=== PATIENT | female | born 1980 | race Caucasian/White ===

== ENCOUNTER → 2020-05-21 16:32 | Outpatient (CLI) | payer SELFPAY ==
--- NOTE | 2020-05-21 16:36 | CT_ITS ---
STUDY: CT MAXILLOFACIAL SINUSES REASON FOR EXAM: Female, 40 years old. Sinusitis. RADIATION DOSAGE (If Supplied By Facility): CTDIvol = ( 33.06 ) mGy, DLP = ( 850.38 ) mGycm TECHNIQUE: The patient was scanned in a multi detector CT scanner. High resolution axial imaging was performed without the administration of intravenous contrast material. Sagittal and coronal images were reconstructed. Individualized dose optimization techniques were used for this CT. COMPARISON: None. FINDINGS: FRONTAL SINUSES: There is mucoperiosteal reaction in both frontal sinuses with near occlusion on the right. ETHMOIDAL SINUSES: Marked mucoperiosteal reaction in the ethmoid air cells. MAXILLARY SINUSES: Bilateral mucoperiosteal reaction with questionable retention cyst on the right. SPHENOIDAL SINUSES: Minimal mucoperiosteal reaction anteriorly in the right sphenoid sinus. There is occlusion of the bilateral maxillary infundibuli with normal uncinate processes, ethmoid bullae, and hiatus semilunaris. Normal bilateral middle turbinates. Normal bilateral inferior turbinates. Normal midline nasal septum. There is patency of the bilateral nasal airways. The visualized osseous structures are normal. The visualized bilateral orbital contents are normal. CT/Sinus/Facial Bone IMPRESSION: Pansinusitis. Electronically Signed: Moises Shelton DO at 22:17 EDT Tel [phone], Service support ,
== END ==
PROVIDERS: PCP Family Medicine; Referring Provider Otolaryngology; Visit Provider Otolaryngology
DX: J32.9 Chronic sinusitis, unspecified (principal); H05.221 Edema of right orbit
CPT/HCPCS: 70486

== ENCOUNTER → 2020-08-11 15:20 | Outpatient (CLI) | payer SELFPAY ==
--- NOTE | 2020-08-11 15:27 | CT_ITS ---
STUDY: CT ORBITS WITH CONTRAST REASON FOR EXAM: Female, 40 years old. Right orbital granuloma x 3 months, improved with steroids, returned 3 weeks ago, redness and swelling, sticky residue in the morning. Hx sinusitis. RADIATION DOSAGE (If Supplied By Facility): CTDIvol = ( 29.38 ) mGy, DLP = ( 297.69 ) mGycm TECHNIQUE: The patient was scanned in a multi detector CT scanner. Transaxial imaging was performed following the intravenous administration of ml of 50mL Isovue-370 contrast material. Sagittal and coronal images were reconstructed. Individualized dose optimization techniques were used for this CT. COMPARISON: Facial bone CT dated May 21, 2020 FINDINGS: Mild right periorbital soft tissue swelling is present. There is also mild enlargement of the right lateral rectus muscle is subtle edema at the periphery of the muscle. Normal globes. Normal intraconal spaces. Normal optic nerve sheath complex. Normal remaining bilateral extraocular muscles. Normal lacrimal glands. Normal bilateral medial and inferior orbital mina. Normal bilateral maxillary bones. Normal bilateral frontozygomatic arches. Normal bilateral zygomatic temporal arches. Normal frontal sinus. There is moderate mucus opacification of the bilateral ethmoid sinuses. Mild to moderate mucosal thickening is present in the bilateral maxillary sinuses.. There is mild mucus opacification in the sphenoid sinuses. Normal visualized mastoid air cells and inner ear structures. There is no demonstrated abnormal enhancement. CT/Orb Sella Post Fossa Ear W/CON IMPRESSION: 1. Mild right periorbital soft tissue swelling is present. There is also mild enlargement of the right lateral rectus muscle is subtle edema at the periphery of the muscle. 2. Paranasal sinusitis Electronically Signed: Eduardo So MD at 16:55 EST , Service support ,
[2020-08-11 16:58] LABS: Erythrocyte Sedimentation Rate 6 mm/hr (0-20)
[2020-08-11 17:52] LABS: Rheumatoid Factor < 10.0 IU/mL (<15)
[2020-08-13 16:09] LABS: Cytoplasmic Ab (C-ANCA) <1:20 titer (Neg:<1:20)
[2020-08-13 16:12] LABS: ANTINUCLEAR ANTIBODIES DIRECT Negative (Negative)
[2020-08-13 16:16] LABS: Angiotensin Convert Enzyme 24 U/L (14-82); Perinuclear Ab (P-ANCA) <1:20 titer (Neg:<1:20)
== END ==
PROVIDERS: PCP Family Medicine; Referring Provider Ophthalmology; Visit Provider Ophthalmology
DX: H05.111 Granuloma of right orbit (principal)
CPT/HCPCS: 36415; 70481; 82164; 85652; 86038; 86256; 86431; Q9967

== ENCOUNTER → 2021-05-26 06:28 | Outpatient (CLI) | payer SELFPAY ==
--- NOTE | 2021-05-26 06:45 | MRI_ITS ---
STUDY: MRI ORBITS WITH AND WITHOUT CONTRAST REASON FOR EXAM: Female, 41 years old. IDIOPATHIC ORBITAL INFLAMMATORY SYNDROME, RIGHT; NKI , SWELLING RT EYE X 1 YEAR TECHNIQUE: Standardized fat and water weighted pulse sequences were obtained in all 3 orthogonal planes, pre-and post contrast administration. IV 16 mL Dotarem was administered for the contrast portion of the examination. COMPARISON: CT of the orbits 08/11/2020 FINDINGS: Normal bilateral globes. Normal bilateral optic nerve sheath complexes and optic nerves. Normal bilateral intraconal and extraconal spaces. There is thickening of the lateral rectus muscle of the right orbit extending to the tendinous junction. There is also asymmetric thickening of the right medial rectus muscle when compared with the left. There is no discrete mass or abnormal enhancement. Normal optic chiasm and post-chiasmatic tracts. Normal sella turcica, pituitary gland, infundibular stalk, and hypothalamus. Normal bilateral cavernous sinuses. Normal tectal plate and pineal gland. Normal flow voids within the major intracranial circulation suggesting patency by spin echo criteria. Moderate mucosal thickening of the maxillary sinuses bilaterally and mucosal thickening in the bilateral ethmoid and left frontal sinuses Normal size of the ventricles and extra-axial spaces for the patient''s age. Normal white matter tracts of the supratentorial brain. Normal bilateral basal ganglia. Normal thalami. There is no extra-axial fluid accumulation. Normal midbrain, ollie and medulla. Normal cerebellum. Normal basal cisterns. 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 Incidental finding of bilateral maxillary ethmoid sinusitis Electronically Signed: Janes Stone MD at 16:46 EDT , Service support ,
[2021-05-26 07:19] LABS: CREATININE FINGERSTICK 0.77 mg/dL (0.55-1.02); EGFR FINGERSTICK > 60 mL/min (>60)
== END ==
PROVIDERS: PCP Family Medicine
DX: H05.00 Unspecified acute inflammation of orbit (principal)
CPT/HCPCS: 70543; A9575

== ENCOUNTER 2022-03-17 19:56 | Emergency (ER) | payer OTHER, SELFPAY ==
[2022-03-17 19:58] VITALS: BP 145/87; PULSE 92; RESP 15; TEMP 36.6; O2SAT 100; BMI 27.9
[2022-03-17 19:59] VITALS: BP 145/87; PULSE 92; RESP 15; TEMP 36.6; O2SAT 100
--- NOTE | 2022-03-17 21:16 | EX.ED.DYSGE1 ---
HPI History of Present Illness Chief Complaint: Other, Pain/Inj Detail of Chief Complaint: Atraumatic neck pain that started last evening Informant: patient and spouse/S.O. Onset/Context/Timing Onset: Yesterday Context: Sudden Onset Timing: Continuous Quality: No pain pain and stiffness Location: Neck Current Severity: Mild Maximum Severity: Severe Worsened by: Movement Relieved by: Nothing Associated Symptoms Associated Symptoms: None Narrative Narrative: Patient is a 42-year-old woman who is seeing the [place] air and hydronic balancing technician several times for swollen eye. She saw an air and hydronic balancing technician in [place]. She had an MRI of her head and neck. She was told she had idiopathic intracranial hypertension. This occurred apparently either June or August of last year. She never followed up with a neurologist. They declined lumbar puncture because they were told the fluid would come back. They were informed that the fluid regenerates daily. The test is important to determine if she needs a shunt or not and if she would benefit from a shunt. She denies paresthesia, anesthesia motors. She denies headache. She denies double vision, blurred vision loss of vision. She states she was recently placed on prednisone for swelling of her eye. She denies night sweats or weight loss. Prior similar symptoms: Yes Recent Illness/Hospitalization: Yes PFSH PFSH Home Medications Zoloft 03/17/22 [History Last Taken Unknown] hydrocodone-acetaminophen 5-325mg 5mg-325mg 1 tab PO Q6H PRN PRN Pain 3 days #10 TABLETS 03/17/22 [Rx Last Taken Unknown] Allergy/AdvReac Type Severity Reaction Status Date / Time No Known Allergies Allergy Verified 03/17/22 19:56 Surgical History (Updated 03/17/22 @ 21:20 by Pennie Ramírez) History of cholecystectomy Social History (Updated 03/17/22 @ 21:[address] Dre Alarcon MD) household members: spouse Smoking Status: Never smoker substance use type: does not use ROS ROS ED Constitutional Constitutional ED: Denies chills, fever(s), subjective, sweats or weight loss Eyes Eyes: Denies blurry vision, change in vision or diplopia ENT ENT ED: Denies ear pain, rhinorrhea or sore throat Cardiovascular Cardiovascular: Denies chest pain, palpitations or racing heartbeat Gastrointestinal Gastrointestinal: Denies nausea or vomiting Neurologic Neurologic: Denies headache(s), paresthesias or weakness Endocrine Endocrinology: Denies cold intolerance or heat intolerance Hematologic/Lymphatic Hematologic/Lymphatic: Reports systems reviewed and no addt'l complaints, except as documented EXAM Physical Exam Const Vital Signs: 03/17/22 19:58 03/17/22 19:59 Temperature 97.8 F 97.8 F Temperature Source Temporal Temporal Pulse Rate 92 92 Respiratory Rate 15 15 Blood Pressure 145/87 H 145/87 H Blood Pressure Mean 106 106 Pulse Ox 100 100 Oxygen Delivery Method Room Air Room Air Positive well nourished and well developed General Appearance ED: well developed and NAD; Negative for pallor HEENT Reports moist mucous membranes and dry mucous membranes Mouth ED: Yes dry mucous membranes Mouth: dry mucous membranes Eyes PERRL; Negative for EOMs intact bilaterally Eyes Narrative: Patient has ptosis on the right. The ptosis does not worsen with repeated blinking. General Eye ED: Negative for pale conjunctiva Neck no lymphadenopathy, No supple and no JVD Neck Narrative: Patient has limited flexion extension and rotation. Patient has pain with movement against resistance except to the right. Reiki is midline. There is no inspiratory stridor. General: tenderness Resp normal respiratory effort and clear to auscultation bilaterally Cardio regular rate, regular rhythm, S1 normal heart sound, S2 normal heart sound and no murmurs Neuro oriented x3, CN's II-XII intact bilaterally and no sensory deficits noted Sensorium / Orientation: alert Motor Exam: strength 5/5 throughout Psych mental status grossly normal Skin no rashes or lesions noted, no wounds and skin turgor normal General Skin Exam: Negative for jaundice or pallor MDM MDM MDM Narrative Medical decision making narrative: Patient's history and physical is consistent with torticollis. Had lengthy discussion with patient and regarding idiopathic intracranial hypertension and need to follow-up with a neurologist and why a lumbar puncture is needed. Since she has no visual symptoms presently and denies headache this does not need to be performed emergently especially since the diagnosis was last year. Discharge Plan Triage Chief Complaint: Other, Pain/Inj ED Provider: Dre Alarcon Dx/Rx/DC Orders Clinical Impression: Acute torticollis, History of idiopathic intracranial hypertension Prescriptions: New hydrocodone-acetaminophen [hydrocodone-acetaminophen] 5-325 mg tablet 1 tab PO Q6H PRN PRN (Reason: Pain) 3 Days Qty: 10 0RF No Action Zoloft Primary Care Provider: Ayush Nunez Referrals: Ayush Nunez, [Primary Care Provider] - As soon as possible (Needs referral to neurologist and possibly neurosurgeon) Disposition Disposition: Home, Self Care
[2022-03-17] MEDS: HYDROcodone Bitartrate/Apap 5/325 Tablet PO (21:23)
== END 2022-03-17 22:31 | disposition home or self-care (01) ==
PROVIDERS: Emergency Provider Emergency Medicine; PCP Family Medicine; Visit Provider Emergency Medicine
DX: M43.6 Torticollis (principal); G93.2 Benign intracranial hypertension; Z79.899 Other long term (current) drug therapy
CPT/HCPCS: 99283

== ENCOUNTER 2023-05-27 13:57 | Emergency (ER) | payer OTHER, SELFPAY ==
[2023-05-27 13:58] VITALS: BP 135/74; PULSE 108; RESP 18; TEMP 35.9; O2SAT 99
[2023-05-27 14:18] VITALS: BMI 23.0
--- NOTE | 2023-05-27 14:18 | CT_ITS ---
STUDY: CT ABDOMEN AND PELVIS WITHOUT CONTRAST REASON FOR EXAM: Female, 43 years old. r flank pain RADIATION DOSAGE (If Supplied By Facility): CTDIvol = ( 6.22 ) mGy, DLP = ( 299.79 ) mGycm TECHNIQUE: Transaxial images were obtained from the dome of the diaphragm to the symphysis pubis without oral contrast, and without intravenous contrast. Sagittal and coronal images were reconstructed. Individualized dose optimization techniques were used for this CT. COMPARISON: None. FINDINGS: The visualized lung bases are unremarkable. The visualized portions of the heart are within normal limits. Multiple masses of decreased attenuation of the liver consistent with a metastatic disease. There is non-visualization of the gallbladder, which may be secondary to either contraction or a prior cholecystectomy. Normal spleen. Normal pancreas. Normal bilateral adrenal glands. Normal right kidney. Normal left kidney. Normal visualized stomach. Normal small intestine. Suture line in the mid transverse colon. The appendix is visualized and appears normal. Normal abdominal aorta. Normal inferior vena cava. There are multiple masses of soft tissue attenuation within the anterior aspect of the abdomen at the level of the umbilicus consistent with omental carcinomatosis. Normal urinary bladder. Normal abdominal wall. Multiple lytic lesions within the lumbar spine, sacrum, and bony pelvis worrisome for lytic metastases. Acute moderate burst fracture of the L4 vertebra worrisome for a pathologic fracture with no retropulsion into the spinal canal. Large (5 cm) of the expansile lytic lesion of the lateral left 10th rib consistent with metastasis. CT/Abdomen/Pelvis without Cont IMPRESSION: 1. No renal or ureteral stone. 2. Postsurgical changes to the mid transverse colon with the widespread metastatic disease including hepatic metastases, omental carcinomatosis, and lytic skeletal metastases with a 5 cm expansile lytic lesion of the left lateral left 10th rib and a moderate burst pathologic fracture of the L4 vertebra without retropulsion into the spinal canal. Electronically Signed: Kai Oakes MD at 16:23 EDT ,
[2023-05-27] MEDS: 0.9% Normal Saline (1000mL) 1,000 ML 1000 ML IV (14:26)
[2023-05-27] MEDS: Ketorolac 30 MG/ML Syringe IV (14:26)
[2023-05-27] MEDS: Ondansetron 4 MG/2 ML Vial IV (14:26)
[2023-05-27 14:39] LABS: Mucous, Urine 0 SEEN /hpf (<or=2+); Red Blood Cells-Urine 0 SEEN /hpf (0-5)
[2023-05-27 14:40] LABS: Absolute Lymphocyte Count 1.15 X10^3/uL (0.83-4.51); Absolute Neutrophil Count 10.3 X10^3/uL (2.0-7.7); Basophil# 0.05 X10^3/uL; Basophil% 0.4 % (0-1); Eosinophil# 0.69 X10^3/uL; Eosinophils% 5.2 % (0-5); Hemoglobin 10.8 g/dL (12.0-15.0); Lymphocyte # 1.15 X10^3/ul (0.83-4.51); Lymphocyte % 8.6 % (19-41); Mean Corp Hgb Conc 30.9 g/dL (32-36); Mean Corpuscular Hgb 28.6 pg (27.0-32.0); Mean Corpuscular Volume 92.8 fL (81-99); Mean Platelet Vol. 9.9 fl (6.2-12.0); Monocyte# 0.98 X10^3/uL; Monocyte% 7.4 % (0-10); NRBC Flagged by Analyzer 0 % (0-5); Neutrophil # 10.27 X10^3/uL (2.7-7.7); Neutrophil % 77.1 % (47-70); POSITIVE MORPHOLOGY YES; Platelet Count 262 K/mm3 (150-450); RBC Distribution Width CV 19.5 % (11.6-14.6); RBC Distribution Width SD 66.4 fl (35.1-43.9); Red Blood Count 3.77 M/mm3 (4.2-5.4); White Blood Count 13.3 K/mm3 (4.4-11.0)
[2023-05-27 14:41] LABS: Color, Urine Amber (Yellow); Glucose, Dipstick Normal (Normal); Ketone-Dipstick Negative (Negative); Leukocyte Esterase-Dipstick 500 /ul (Negative); Nitrite-Dipstick Positive (Negative); Occult Blood-Urine Negative /ul (Negative); Protein-Dipstick 15 mg/dl (Negative); Specific Gravity, Urine 1.005 (1.002-1.030); Urine Clarity Clear (Clear); Urine Urobilinogen 8 mg/dl (Normal)
[2023-05-27 14:42] LABS: Differential Indicated SCAN CRITERIA MET
[2023-05-27 14:44] LABS: Urine Bilirubin Dipstick 3 mg/dL (Negative)
[2023-05-27 14:47] LABS: Bacteria RARE /hpf (None Seen); Internal QC Validated? YES +Cl - CLEAR BKGD; Pregnancy, Urine Negative Negative; Squamous Epithelial Cells - UA 5-10 SEEN /hpf (5-10); White Blood Cells 5-10 SEEN /hpf (0-5)
[2023-05-27 14:58] LABS: ALB/GLOB Ratio 0.7 RATIO (0.9-2.4); AST(SGOT) 127 U/L (15-37); Alanine Aminotransfer ALT/SGPT 54 U/L (13-56); Albumin, Serum 3.1 g/dL (3.2-5.0); Alkaline Phosphatase 557 U/L (45-117); Anion Gap 6 (5-15); BUN 5 mg/dL (7-18); BUN/Creat Ratio 12.7 RATIO (10-20); Calcium,Total 9.4 mg/dL (8.5-10.1); Chloride 103 mmol/L (98-107); Creatinine, Serum 0.39 mg/dL (0.55-1.02); EST Glomerular Filtration Rate 186 mL/min (>60); Est Glom Filt Rate - Afr Amer 226 mL/min (>60); Estimated Creatinine Clearance 163.92 ml/min; Globulin 4.5 g/dL (2.2-4.2); Glucose 102 mg/dL (74-106); Lipase 11 U/L (13-75); Potassium 3.7 mmol/L (3.5-5.1); Protein, Total 7.6 g/dL (6.4-8.2); Sodium Level 137 mmol/L (136-145)
[2023-05-27 15:02] LABS: Anisocytosis 2+
--- NOTE | 2023-05-27 16:59 | EDS_ITS ---
HPI History of Present Illness Chief Complaint: Abd Pain Onset/Context/Timing Onset: Days Location: Right flank Maximum Severity: Severe Narrative Narrative: Patient presents with right flank pain. She was treated with Macrobid for UTI. She presents with continued pain. She does have a history of colon cancer status postresection remotely. She had chemotherapy through a physician in [facility]. She was told she had involvement of her liver and L4 spine. No new neurologic symptoms. No fever. No new GI symptoms. [facility] Medical History Colon cancer Home Medications cyclobenzaprine 10 mg tablet 10 mg PO Q8H PRN muscle spasm 05/27/23 [History Last Taken Unknown] nitrofurantoin monohydrate/macrocrystals 100 mg capsule 100 mg PO Q12H 05/27/23 [History Last Taken Unknown] oxycodone 5 mg tablet 5 mg PO Q6H PRN pain 05/27/23 [History Last Taken Unknown] oxycodone-acetaminophen 5 mg-325 mg tablet 1 tab PO Q6H PRN PRN Pain 3 days #12 TABLETS 05/27/23 [Rx Last Taken Unknown] phenazopyridine 95 mg tablet (Azo Urinary Pain Relief) 95 mg PO TID PRN pain 05/27/23 [History Last Taken Unknown] sertraline 50 mg tablet 50 mg PO Q24H 05/27/23 [History Last Taken Unknown] tramadol 50 mg tablet 50 mg PO Q8H PRN pain 05/27/23 [History Last Taken Unknown] Allergy/AdvReac Type Severity Reaction Status Date / Time No Known Allergies Allergy Verified 05/27/23 14:00 Surgical History History of cholecystectomy Social History household members: spouse Smoking Status: Never smoker substance use type: does not use ROS ROS ED Constitutional Constitutional ED: Denies chills or fever(s) Eyes Eyes: Denies blurry vision ENT ENT ED: Denies ear pain Cardiovascular Cardiovascular: Denies chest pain Respiratory/Chest Respiratory/Chest: Denies cough or dyspnea Gastrointestinal Gastrointestinal: Reports abdominal pain; Denies constipation, diarrhea, melena, nausea or vomiting Genitourinary Genitourinary ED: Denies dysuria or hematuria Musculoskeletal Musculoskeletal: Reports back pain; Denies arthralgias, myalgias or neck pain Integumentary Denies abscess Neurologic Neurologic: Denies headache(s) Psychiatric Psychiatric: Denies anxiety Endocrine Endocrinology: Denies cold intolerance Allergic/Immunologic Allergic/Immunologic ED: Denies mouth swelling EXAM Physical Exam Const Vital Signs: 05/27/23 13:58 Temperature 96.7 F L Temperature Source Temporal Pulse Rate 108 H Respiratory Rate 18 Blood Pressure 135/74 H Blood Pressure Mean 94 Pulse Ox 99 Oxygen Delivery Method Room Air Positive well nourished and well developed General Appearance ED: well developed HEENT Reports moist mucous membranes Eyes EOMs intact bilaterally Resp normal respiratory effort and clear to auscultation bilaterally Cardio regular rate and regular rhythm GI normal to inspection, nondistended, normoactive bowel sounds, non-tender and non-distended Back/Spine no CVA tenderness Extremity normal to inspection Neuro oriented x3 Sensorium / Orientation: alert Psych mental status grossly normal Skin no rashes or lesions noted MDM MDM MDM Narrative Medical decision making narrative: Concern for , [employer], GI pathology. Concern for stones and kidney infection. Also concerned this may be related to her underlying colon cancer. Patient had labs, urinalysis, and CT performed to evaluate these potential etiologies. CT showed no evidence of kidney stone but she has postoperative changes including multiple metastatic lesions and lesions involving her left lateral rib and L4 burst fracture without retropulsion. White count 13.3. Hemoglobin 10.8. AST 127, alkaline phosphatase 557. Lipase negative. Urinalysis shows some findings consistent with UTI. Patient will continue on her antibiotics to cover for UTI, but I suspect that a lot of this may be related to her metastatic cancer. Patient was given referral to fast pass as well as oncology locally. She had seen any physician at the [facility] and may also follow-up with them. She was under the impression that she only had a lesion to her liver. She said her rib lesions were benign and she had known about the L4 burst fracture. I do not have her old test for comparison, but I suspect that her cancer is worsening. Will prescribe pain medicine. Continue antibiotics. Again referred locally or she may follow-up with her clinic physician. They will need to review all of her testing and discuss options going forward. I do not believe she needs hospitalized at this time. Discharge home Impression #1 metastatic colon cancer Impression #2 UTI Lab Data Labs: Laboratory Results - last 24 hr 05/27/23 05/27/23 14:18 14:32 WBC 13.3 H RBC 3.77 L Hgb 10.8 L Hct 35.0 L MCV 92.8 MCH 28.6 MCHC 30.9 L RDW Std Deviation 66.4 H RDW Coeff of Patience 19.5 H Plt Count 262 MPV 9.9 Immature Gran % (Auto) 1.300 H Neut % (Auto) 77.1 H Lymph % (Auto) 8.[address] [place] % (Auto) 7.4 Eos % (Auto) 5.2 H Baso % (Auto) 0.4 Absolute Neuts (auto) 10.3 H Absolute Lymphs (auto) 1.15 Nucleated RBC % 0 Anisocytosis 2+ Sodium 137 Potassium 3.7 Chloride 103 Carbon Dioxide 28.0 Anion Gap 6 BUN 5 L Creatinine 0.39 L Estim Creat Clear Calc 163.92 Est GFR (MDRD) Af Amer 226 Est GFR (MDRD) Non-Af 186 BUN/Creatinine Ratio 12.7 Glucose 102 Calcium 9.4 Total Bilirubin 0.50 AST 127 H ALT 54 Alkaline Phosphatase 557 H Total Protein 7.6 Albumin 3.1 L Globulin 4.5 H Albumin/Globulin Ratio 0.7 L Lipase 11 L Urine Color Paula Urine Clarity Clear Urine pH 7.0 Ur Specific Horatio 1.005 Urine Protein 15 H Urine Glucose (UA) Normal Urine Ketones Negative Urine Occult Blood Negative Urine Nitrite Positive H Urine Bilirubin 3 H Urine Urobilinogen 8 H Ur Leukocyte Esterase 500 H Urine RBC 0 SEEN Urine WBC 5-10 SEEN Ur Squamous Epith Cells 5-10 SEEN Urine Bacteria RARE Urine Mucus 0 SEEN Urine Test Negative Radiography Diagnostic Testing: Clinical Impression(s) from Imaging Studies Abdomen/Pelvis CT 05/27/23 14:18 IMPRESSION: 1. No renal or ureteral stone. 2. Postsurgical changes to the mid transverse colon with the widespread metastatic disease including hepatic metastases, omental carcinomatosis, and lytic skeletal metastases with a 5 cm expansile lytic lesion of the left lateral left 10th rib and a moderate burst pathologic fracture of the L4 vertebra without retropulsion into the spinal canal. Electronically Signed: Kai Oakes MD at 16:23 EDT , Discharge Plan Triage Chief Complaint: Abd Pain ED Provider: Chino Nuno Dx/Rx/DC Orders Instructions: Colorectal Cancer Prescriptions: New oxycodone-acetaminophen [oxycodone-acetaminophen] 5-325 mg tablet 1 tab PO Q6H PRN PRN (Reason: Pain) 3 Days Qty: 12 0RF No Action cyclobenzaprine 10 mg tablet 10 mg PO Q8H PRN (Reason: muscle spasm) Patient Comments: TAKE ONE TABLET BY MOUTH UP TO THREE TIMES DAILY NEEDED FOR MUSCLE SPASMS tramadol 50 mg tablet 50 mg PO Q8H PRN (Reason: pain) Patient Comments: TAKE ONE TABLET BY MOUTH EVERY 6 TO 8 HOURS NEEDED sertraline 50 mg tablet 50 mg PO Q24H Patient Comments: TAKE ONE TABLET BY MOUTH DAILY oxycodone 5 mg tablet 5 mg PO Q6H PRN (Reason: pain) Patient Comments: TAKE ONE TABLET BY MOUTH EVERY 6 TO 8 HOURS NEEDED FOR PAIN nitrofurantoin monohyd/m-cryst 100 mg capsule 100 mg PO Q12H Patient Comments: TAKE ONE CAPSULE BY MOUTH TWICE DAILY FOR 10 DAYS phenazopyridine [Azo Urinary Pain Relief] 95 mg tablet 95 mg PO TID PRN (Reason: pain) Other Ambulatory Orders: [facility]: Oncology Referral [facility] (Routine) Facility: [facility] - Location: [facility] Ordered By: Dr. Chino Nuno Primary Care Provider: Ayush Nunez Referrals: Yoli Domínguez MD [Med Staff - Active Staff] - Ayush Nunez DO [Primary Care Provider] - Disposition Disposition: Home, Self Care
[2023-05-27 17:24] VITALS: RESP 16
== END 2023-05-27 17:25 | disposition home or self-care (01) ==
PROVIDERS: Emergency Provider Emergency Medicine; PCP Family Medicine; Visit Provider Emergency Medicine
DX: C18.9 Malignant neoplasm of colon, unspecified (principal); C79.51 Secondary malignant neoplasm of bone; C78.7 Secondary malignant neoplasm of liver and intrahepatic bile duct; S32.041A Stable burst fracture of fourth lumbar vertebra, initial encounter for closed fracture; N39.0 Urinary tract infection, site not specified; Z79.899 Other long term (current) drug therapy
CPT/HCPCS: 74176; 80053; 81001; 81025; 83690; 85025; 96361; 96374; 96375; 99283; J7030; A4216; J2405

== ENCOUNTER 2023-07-10 14:38 | Emergency (ER) | payer OTHER, SELFPAY ==
[2023-07-10] VITALS (7 sets, daily range): BP systolic 87–114; BP diastolic 64–75; PULSE 100–110; RESP 12–19; TEMP 36.2–37.2; O2SAT 94–96; BMI 23.7
--- NOTE | 2023-07-10 15:04 | CT_ITS ---
STUDY: CT LUMBAR SPINE WITH CONTRAST REASON FOR EXAM: Female, 43 years old. recent surgery, incision dehisc w/ infection RADIATION DOSAGE (If Supplied By Facility): CTDIvol = ( 12.22 ) mGy, DLP = ( 364.30 ) mGycm TECHNIQUE: The patient was scanned in a multi detector CT scanner. High resolution transaxial imaging was performed following the intravenous administration of IV 100mL Isovue-300. Images were obtained from T12 to S1. Sagittal and coronal images were reconstructed. Individualized dose optimization techniques were used for this CT. COMPARISON: None FINDINGS: Normal lumbar lordosis. There is no substantial scoliosis. 1.5 cm lytic lesion of the posterior aspect of the superior endplate of L1 with destruction of the superior endplate and at expansion of the posterior cortex posteriorly 2 mm in the spinal canal producing mild spinal stenosis consistent with a metastasis. Acute severe burst fracture of the L4 vertebral body with a near vertebral plana appearance treated with posterior decompression and transpedicular fixation. Status post vertebral plasty of L2-L3 and L5. L1-2: Normal endplates. Normal disc height and morphology. Normal bilateral facet joints. Normal central canal and bilateral lateral recesses. Normal bilateral intervertebral neural foramina. L2-3: Mild bilobed disc protrusion produces mild spinal stenosis and mild bilateral neural foraminal stenosis. L3-4: L4 burst fracture with approximately 5 mm retropulsion of the superior endplate of L4 into the spinal canal in the moderate broad disc protrusion produces moderate spinal stenosis treated by posterior decompression and transpedicular fixation with suspected antibiotic beads posterior to the thecal sac. L4-5: L4 burst fracture with approximately 2 mm retropulsion of the inferior endplate of L4 into the spinal canal with a mild broad disc protrusion which produces mild spinal stenosis relieved by posterior decompression and transpedicular fixation L5-S1: Mild broad disc protrusion produces mild spinal stenosis and mild bilateral neural foraminal stenosis relieved by posterior decompression and transpedicular fixation with anatomic alignment. Normal visualized paraspinous soft tissue structures. CT/Spine Lumbar WITH Contrast IMPRESSION: Severe burst fracture of L4 treated with posterior decompression and transpedicular fixation with some antibiotic beads posteriorly. Electronically Signed: Kai Oakes MD at 18:04 EDT ,
--- NOTE | 2023-07-10 15:05 | VDLE_ITS ---
Reason For Study: Bilateral leg pain/swelling RIGHT LEFT GSV is normal. GSV is normal. CFV is compressible, spontaneous, phasic, CFV is compressible, spontaneous, phasic, competent and demonstrates normal competent, and demonstrates normal augmentation. augmentation. FV is compressible, spontaneous, phasic, FV is compressible, spontaneous, phasic, competent and demonstrates normal competent and demonstrates normal augmentation. augmentation. POP V is compressible, spontaneous, phasic, POP V is compressible, spontaneous, phasic, competent and demonstrates normal competent and demonstrates normal augmentation. augmentation. T/P Trunk is compressible. T/P Trunk is compressible. PTV is compressible. PTV is compressible. RT PerV is compressible. LT PerV is compressible. Procedure This is a venous duplex using B-mode, color flow and spectral Doppler. Exam performed portable in ED. A preliminary report was called and/or faxed to Dr. Andrews. VL/Venous Duplex US - Narciso Extrem Interpretation Summary Deep veins of the lower extremities are bilaterally patent and compressible seg mentally. There is no evidence of deep vein thrombosis on either side. Valvular competence appears in tact within the proximal deep venous systems bilaterally. The great saphenous veins appear bila terally patent and compressible segmentally. Ordering Physician: Mathew Andrews Referring Physician: Ayush Nunez Performed By: Sara John RVT
--- NOTE | 2023-07-10 15:07 | EKG12_ITS ---
Test Reason : LOWER EXT Blood Pressure : / mmHG Vent. Rate : 105 BPM Atrial Rate : 105 BPM P-R Int : 104 ms QRS Dur : 082 ms QT Int : 350 ms P-R-T Axes : 053 072 033 degrees QTc Int : 462 ms Sinus tachycardia with short SD Otherwise normal ECG Confirmed by LINDA WATSON, RADHIKA ([id number]), associate entertainment editor EDITH SU ([id number]) on 07/12/2023 6:49:12 AM Referred By: Confirmed By:RADHIKA MCKEON MD
--- NOTE | 2023-07-10 15:09 | EDS_ITS ---
HPI History of Present Illness Chief Complaint: Lower Extremity Injury Informant: patient Narrative Narrative: Patient brought by for pain in her left thigh and lower leg intermittently, mostly when she tries to get around on it. Started 3 or 4 days ago. No injury or fall. She has metastatic colon cancer, she had colon surgery and some chemotherapy back in November, and 3 to 4 weeks ago she had surgery on her low back for mets to the spine according to the . All of this was done at [facility]. In the last several days, he has seen drainage coming from her surgical wound on her low back, so he has been treating it by placing bandages with burdock leaves on it. Denies any fevers or chills. Patient confirms that her back has been hurting more lately cannot tell if it is the scan or further in. She denies any numbness in her legs or bowel or bladder dysfunction. No abdominal pain or vomiting. The pain has been in her left lower extremity, but the is concerned that the right calf looks bigger than usual and there is edema in the left ankle. No history of DVT. When they called the oncology office this morning they were advised to come to the ER to have an evaluation for DVT. She is currently on enoxaparin injections for prophylaxis according to the . [facility] Medical History (Updated 07/10/23 @ 20:[address] Mathew Andrews MD) Colon cancer Home Medications sertraline 50 mg tablet 50 mg PO Q24H 05/27/23 [History Last Taken 07/09/23] cephalexin 500 mg capsule 500 mg PO Q6 #40 CAPSULES 07/10/23 [Rx Last Taken Unknown] hydromorphone 4 mg tablet (Dilaudid) 4 mg PO Q4H PRN pain 07/10/23 [History Last Taken 07/10/23] methocarbamol 500 mg tablet 500 mg PO TID 07/10/23 [History Last Taken 07/09/23] morphine 15 mg tablet,extended release (MS Contin) 15 mg PO .COMPLEX PAIN 07/10/23 [History Last Taken 07/10/23] sennosides 8.6 mg tablet (Natural Senna Laxative) 8.6 mg PO DAILY PRN constipation 07/10/23 [History Last Taken 07/09/23] Allergy/AdvReac Type Severity Reaction Status Date / Time No Known Allergies Allergy Verified 07/10/23 14:40 Surgical History (Updated 07/10/23 @ 15:[address] Mathew Andrews MD) History of back surgery History of cholecystectomy History of colon surgery Social History household members: spouse Smoking Status: Never smoker substance use type: does not use ROS ROS ED Constitutional Constitutional ED: Denies chills or fever(s) Eyes Eyes: Denies change in vision or diplopia ENT ENT ED: Denies rhinorrhea or sore throat Cardiovascular Cardiovascular: Denies chest pain or palpitations Respiratory/Chest Respiratory/Chest: Denies cough or dyspnea Gastrointestinal Gastrointestinal: Denies abdominal pain, diarrhea, nausea or vomiting Genitourinary Genitourinary ED: Denies dysuria or hematuria Musculoskeletal Musculoskeletal: Reports as per HPI, back pain and extremity pain; Denies neck pain Integumentary Reports as per HPI and wounds; Denies rash Neurologic Neurologic: Denies headache(s), paresthesias or weakness Psychiatric Psychiatric: Denies suicidal ideation or suicidal thoughts EXAM Physical Exam Const Vital Signs: 07/10/23 14:39 07/10/23 15:07 07/10/23 17:00 Temperature 97.2 F L Temperature Source Temporal Pulse Rate 110 H 100 Respiratory Rate 16 12 Blood Pressure 87/67 L 104/64 Blood Pressure Mean 73 77 Pulse Ox 96 94 94 Oxygen Delivery Method Room Air Room Air Room Air 07/10/23 17:20 07/10/23 18:04 07/10/23 19:13 Temperature 98.9 F Temperature Source Oral Pulse Rate 105 H 101 H 102 H Respiratory Rate 19 H 16 15 Blood Pressure 109/75 111/70 108/69 Blood Pressure Mean 86 83 82 Pulse Ox 94 95 94 Oxygen Delivery Method Room Air Room Air Room Air 07/10/23 19:19 Temperature Temperature Source Pulse Rate 105 H Respiratory Rate 19 H Blood Pressure 114/66 Blood Pressure Mean 82 Pulse Ox 95 Oxygen Delivery Method Room Air Positive well nourished and well developed General Appearance ED: well developed and NAD HEENT Reports moist mucous membranes normocephalic and atraumatic Eyes PERRL and EOMs intact bilaterally Neck full ROM and supple Resp normal respiratory effort and clear to auscultation bilaterally Cardio regular rate, regular rhythm and no murmurs GI non-tender and non-distended Auscultation: normoactive bowel sounds Palpation: soft Back/Spine no CVA tenderness Back/Spine Narrative: 3 different areas of superficial appearing dehiscence from surgical wound low back, all with what appears to be purulent discharge, white-yellow granulation tissue with thin, and tender erythema surrounding them. Even with wiping with isopropanol, more discharge is easily expressible from the wounds, which is more thin at that time. Extremity Extremity Narrative: Brisk cap refill all toes and dorsalis pedis pulses intact both feet. Mild edema both ankles and worse on the left. The right calf is larger than the left. There are no palpable cords, erythema or signs of a wound, and no calf tenderness bilaterally. All compartments are soft and nondistended. Full passive range of motion of all joints of both lower extremities without pain. General Extremety ED: Negative for pulses abnormal or tenderness General Extremity: Negative for pulses abnormal Neuro oriented x3, CN's II-XII intact bilaterally and no sensory deficits noted Sensorium / Orientation: awake and alert Motor Exam: general weakness Psych Psych Narrative: flat affect Skin no rashes or lesions noted and no wounds MDM MDM MDM Narrative Medical decision making narrative: Patient clearly has what appears to be multifocal dehiscence and subsequent i nfection in her surgical wound of her lumbar spine. Even after swabbing the area, I am able to express fresh discharge and I am concerned with infection there. I performed a CT of this area to evaluate for deeper tissue/bony involvement. I reviewed the images and the report which I agree with, basically shows signs of diffuse metastatic disease in the bony spine and pelvis including the sacrum, as well as the burst fracture of L4 and fixation hardware and antibiotic beads/kyphoplasty of multiple vertebrae, I do not have preop imaging for comparison. No sign of any soft tissue abscess this was an IV contrasted scan. I can see the liver on the scan and it appears to be enlarged with many metastases. Given her leg pain and asymmetric exam, I obtained venous duplex ultrasound of both lower extremities, negative for DVT, and I obtained x-rays of the femur and the tib-fib. 4 view x-ray series of the left femur shows a possible lytic lesion distally. 3 view x-ray series of the tibia-fibula shows no acute abnormality. No fractures in either 1. I agree with radiology's interpretations. She was given pain medication IV. Patient sees Dr. Nava and Dr. Bello, both with [facility], neurosurgery and hematology-oncology respectively. Does not see any specialist locally here, just PCPVernon Varela ordered and started after sending a culture of freshly expressed discharge from the back wound. Had surgery 3 weeks ago so called to discuss with the on-call neurosurgeon. I went through the transfer center at [facility], they did not require a [id number] conversation, accepting the patient in transfer. After multiple discussions with the patient and family, the wanted me to talk to the surgeons/physicians before they made his decision, but after all of this and multiple more conversations, they have decided to leave AGAINST MEDICAL ADVICE. The patient really wants to go home. I pleaded with them that there are multiple reasons for them to go down to [facility] including speaking to the oncologist because it seems that they are not aware of the prognosis here, which seems to be likely to be poor with metastases all over her spine, sacrum, and liver, and probably her left femur now. They do not seem to be aware that she may be incurable, stating that she is currently getting radiation and unsure if it is palliative radiation or not, I explained that term to them when I asked and they were unsure. They understand that she could have sepsis currently due to this wound infection, and that she may or may not need surgical debridement, IV antibiotics until blood cultures return, and this will allow them to have a discussion with her oncologist and to clear up any misunderstandings that they may have. Despite all of this, all 3 family members in the room including the patient want to take her home. They all appear to have the capacity to make this decision and we talked about it at length. We will prescribe her cephalexin she has pain medication at home. Lab Data Attestation: I reviewed the patient's lab results. Labs: Laboratory Results - last 24 hr 07/10/23 15:26 WBC 24.1 H RBC 3.01 L Hgb 8.4 L Hct 27.0 L MCV 89.7 MCH 27.9 MCHC 31.1 L RDW Std Deviation 57.1 H RDW Coeff of Patience 17.4 H Plt Count 250 MPV 9.5 PT 14.5 INR 1.1 APTT 35.6 Sodium 131 L Potassium 3.2 L Chloride 89 L Carbon Dioxide 36.0 H Anion Gap 6 BUN 7 Creatinine 0.33 L Estim Creat Clear Calc 193.72 Est GFR (MDRD) Af Amer 280 Est GFR (MDRD) Non-Af 231 BUN/Creatinine Ratio 21.4 H Glucose 118 H Lactic Acid 1.8 Calcium 7.9 L Total Bilirubin 1.00 AST 366 H ALT 55 Alkaline Phosphatase 987 H Total Protein 5.5 L Albumin 1.7 L Globulin 3.8 Albumin/Globulin Ratio 0.4 L Radiography Diagnostic Testing: Clinical Impression(s) from Imaging Studies Lumbar Spine CT 07/10/23 15:04 IMPRESSION: Severe burst fracture of L4 treated with posterior decompression and transpedicular fixation with some antibiotic beads posteriorly. Electronically Signed: Kai Oakes MD at 18:04 EDT , Femur X-Ray 07/10/23 16:25 IMPRESSION: Questionable 6 cm lytic lesion involving the distal femoral metadiaphysis consistent with known metastatic disease. No fracture. Electronically Signed: Gibson Singleton MD at 17:34 EDT , Tibia/Fibula X-Ray 07/10/23 16:25 IMPRESSION: No acute radiographic abnormalities. Electronically Signed: Gibson Singleton MD at 17:35 EDT , Rhythm Strip Rhythm Strip: Sinus Tach Rate: 105 Ectopy: None EKG Initial EKG: Attestation: I personally reviewed and interpreted this EKG as follows: Interpretation: No Acute Injury Pattern and Sinus Tachycardia (otherwise nml EKG) Discharge Plan Triage Chief Complaint: Lower Extremity Injury ED Provider: Mathew Andrews Dx/Rx/DC Orders Clinical Impression: Infected surgical wound, Acute pain of left lower extremity, Leukocytosis, Malignant neoplasm metastatic to colon, Transient hypotension Instructions: ED Wound Infection after surgery Prescriptions: New cephalexin [cephalexin] 500 mg capsule 500 mg PO Q6 Qty: 40 0RF No Action sertraline 50 mg tablet 50 mg PO Q24H Patient Comments: TAKE ONE TABLET BY MOUTH DAILY morphine [MS Contin] 15 mg tablet extended release 15 mg PO .COMPLEX Rx Instructions: 15 mg orally 2AM, 1AFTERNOON, 2PM; hydromorphone [Dilaudid] 4 mg tablet 4 mg PO Q4H PRN (Reason: pain) methocarbamol 500 mg tablet 500 mg PO TID sennosides [Natural Senna Laxative] 8.6 mg tablet 8.6 mg PO DAILY PRN (Reason: constipation) Primary Care Provider: Ayush Nunez Referrals: Ayush Nunez DO [Primary Care Provider] - 2 Days for wound check (and/or one of your specialists (ideally the neurosurgeon who operated on you)) Disposition Disposition: Against Medical Advice Capacity Capacity Assessment Tool Can the patient make a choice & communicate that choice?: Yes Can the patient understand benefits, risks and alternatives?: Yes Can the patient make a logical, rational choice?: Yes Is the choice the patient makes consistent w/ their values?: Yes Is there an impending, emergent risk to the patient?: Yes Is there a Surrogate Available?: Yes i.e. close relative (spouse, child, parent, sibling)?: Yes
[2023-07-10] MEDS: 0.9% Normal Saline (1000mL) 1,000 ML 999 ML IV (15:30)
[2023-07-10 15:40] LABS: Hemoglobin 8.4 g/dL (12.0-15.0); Mean Corp Hgb Conc 31.1 g/dL (32-36); Mean Corpuscular Hgb 27.9 pg (27.0-32.0); Mean Corpuscular Volume 89.7 fL (81-99); Mean Platelet Vol. 9.5 fl (6.2-12.0); Platelet Count 250 K/mm3 (150-450); RBC Distribution Width CV 17.4 % (11.6-14.6); RBC Distribution Width SD 57.1 fl (35.1-43.9); Red Blood Count 3.01 M/mm3 (4.2-5.4); White Blood Count 24.1 K/mm3 (4.4-11.0)
[2023-07-10 15:51] LABS: International Normalized Ratio 1.1; Prothrombin Time (Protime)PT. 14.5 SECONDS (11.7-14.9)
[2023-07-10 15:52] LABS: Partial Thromboplast Time 35.6 Seconds (24.1-36.2)
[2023-07-10 15:58] LABS: ALB/GLOB Ratio 0.4 RATIO (0.9-2.4); AST(SGOT) 366 U/L (15-37); Alanine Aminotransfer ALT/SGPT 55 U/L (13-56); Albumin, Serum 1.7 g/dL (3.2-5.0); Alkaline Phosphatase 987 U/L (45-117); Anion Gap 6 (5-15); BUN 7 mg/dL (7-18); BUN/Creat Ratio 21.4 RATIO (10-20); Calcium,Total 7.9 mg/dL (8.5-10.1); Chloride 89 mmol/L (98-107); Creatinine, Serum 0.33 mg/dL (0.55-1.02); EST Glomerular Filtration Rate 231 mL/min (>60); Est Glom Filt Rate - Afr Amer 280 mL/min (>60); Estimated Creatinine Clearance 193.72 ml/min; Globulin 3.8 g/dL (2.2-4.2); Glucose 118 mg/dL (74-106); Potassium 3.2 mmol/L (3.5-5.1); Protein, Total 5.5 g/dL (6.4-8.2); Sodium Level 131 mmol/L (136-145)
[2023-07-10 16:12] LABS: Lactic Acid 1.8 mmol/L (0.4-1.9)
--- NOTE | 2023-07-10 16:25 | RAD_ITS ---
INDICATION: pain, hx metastatic colon ca EXAMINATION/TECHNIQUE: X-RAY - LEFT XR Femur Min 2 Views COMPARISON: None. FINDINGS: No acute fracture or malalignment. Questionable 6 cm lytic lesion involving the distal femoral metadiaphysis. Mild degenerative changes. The soft tissues are unremarkable. RAD/Femur Min 2 Views IMPRESSION: Questionable 6 cm lytic lesion involving the distal femoral metadiaphysis consistent with known metastatic disease. No fracture. Electronically Signed: Gibson Singleton MD at 17:34 EDT ,
--- NOTE | 2023-07-10 16:25 | RAD_ITS ---
INDICATION: pain, hx metastatic colon ca EXAMINATION/TECHNIQUE: X-RAY - LEFT XR Tibia/Fibula 2 Views COMPARISON: None. FINDINGS: No acute fracture or malalignment. No blastic or lytic lesions. Mild degenerative changes. The soft tissues are unremarkable. RAD/Tibia & Fibula 2 Views IMPRESSION: No acute radiographic abnormalities. Electronically Signed: Gibson Singleton MD at 17:35 EDT ,
[2023-07-10] MEDS: Morphine 4 MG/ML Syringe IV ×2 (17:23→19:16)
[2023-07-10] MEDS: Piperacil/Tazobactam 3.375 GM in 0.9% Normal Saline (50mL MB+) 50 ML IV (18:38)
--- NOTE | 2023-07-10 20:44 | ED.RN ---
Pt and spouse decline further treatment and transfer to another facility. Pt states she just wants to go home and stay there. This Rn educated pt and spouse regarding hospice care, both voiced interest. given number to call for further info regarding hospice.
== END 2023-07-10 21:01 | disposition left against medical advice (07) ==
PROVIDERS: Emergency Provider Emergency Medicine; PCP Family Medicine; Visit Provider Emergency Medicine
DX: T81.31XA Disruption of external operation (surgical) wound, not elsewhere classified, initial encounter (principal); C79.51 Secondary malignant neoplasm of bone; S32.041A Stable burst fracture of fourth lumbar vertebra, initial encounter for closed fracture; C18.9 Malignant neoplasm of colon, unspecified; M79.605 Pain in left leg; R03.1 Nonspecific low blood-pressure reading; D72.829 Elevated white blood cell count, unspecified; R60.0 Localized edema; Z79.899 Other long term (current) drug therapy; Z53.29 Procedure and treatment not carried out because of patient's decision for other reasons; Y83.8 Other surgical procedures as the cause of abnormal reaction of the patient, or of later complication, without mention of misadventure at the time of the procedure
CPT/HCPCS: 72132; 73552; 73590; 80053; 83605; 85027; 85610; 85730; 87040; 87070; 87077; 87086; 87186; 87205; 93005; 93970; 96361; 96365; 96375; 96376; 99285; J7030; J7050; P9612; Q9967; A4216

== ENCOUNTER 2023-07-11 20:01 | Emergency (ER) | payer OTHER, SELFPAY ==
[2023-07-11 20:03] VITALS: BP 113/73; PULSE 106; RESP 18; TEMP 36.5; O2SAT 92; BMI 24.5
[2023-07-11 20:06] VITALS: BP 113/73; PULSE 106; RESP 18; TEMP 36.5; O2SAT 92
--- NOTE | 2023-07-11 20:16 | EKG12_ITS ---
Test Reason : ABNORMAL LABS Blood Pressure : / mmHG Vent. Rate : 104 BPM Atrial Rate : 104 BPM P-R Int : 112 ms QRS Dur : 086 ms QT Int : 358 ms P-R-T Axes : 061 065 027 degrees QTc Int : 470 ms Sinus tachycardia Otherwise normal ECG Confirmed by LINDA WATSON, RADHIKA ([id number]), society editor EDITH SU ([id number]) on 07/12/2023 1:59:02 PM Referred By: Confirmed By:RADHIKA MCKEON MD
[2023-07-11 20:29] VITALS: O2SAT 92
[2023-07-11] MEDS: 0.9% Normal Saline (1000mL) 1,000 ML 999 ML IV ×2 (20:42→22:51)
[2023-07-11 21:11] LABS: Bacteria 0 SEEN /hpf (None Seen); Mucous, Urine 0 SEEN /hpf (<or=2+); Red Blood Cells-Urine 0 SEEN /hpf (0-5); Squamous Epithelial Cells - UA 0 SEEN /hpf (5-10); White Blood Cells 0 SEEN /hpf (0-5)
[2023-07-11 21:13] LABS: Color, Urine Yellow (Yellow); Glucose, Dipstick Normal (Normal); Ketone-Dipstick Negative (Negative); Leukocyte Esterase-Dipstick Negative /ul (Negative); Nitrite-Dipstick Negative (Negative); Occult Blood-Urine Negative /ul (Negative); Protein-Dipstick Negative (Negative); Specific Gravity, Urine 1.005 (1.002-1.030); Urine Bilirubin Dipstick Negative (Negative); Urine Clarity Clear (Clear); Urine Urobilinogen Normal (Normal)
[2023-07-11 21:40] LABS: Hemoglobin 7.6 g/dL (12.0-15.0); Mean Corp Hgb Conc 30.4 g/dL (32-36); Mean Platelet Vol. 9.1 fl (6.2-12.0); POSITIVE COUNT YES; POSITIVE MORPHOLOGY YES; Platelet Count 224 K/mm3 (150-450); RBC Distribution Width CV 17.2 % (11.6-14.6); RBC Distribution Width SD 55.9 fl (35.1-43.9); Red Blood Count 2.81 M/mm3 (4.2-5.4); White Blood Count 20.7 K/mm3 (4.4-11.0)
[2023-07-11 21:47] LABS: Differential Indicated MANUAL DIFF
[2023-07-11 21:49] LABS: International Normalized Ratio 1.2; Prothrombin Time (Protime)PT. 15.6 SECONDS (11.7-14.9)
[2023-07-11 21:59] LABS: Eosinophil 2 % (0-5); Lymphocyte 9 % (19-41); Metamyelocyte 3 % (0-1); Monocyte 5 % (0-10); Myelocyte 2 % (0-0); Neutrophil-Band 17 % (0-5); Neutrophil-Segmented 61 % (47-70); Promyelocyte 1 % (0-0); Total Cells Counted 100 (MANUAL DIFF)
[2023-07-11 22:00] LABS: Absolute Neutrophil Count 16.1 X10^3/uL (2.0-7.7)
[2023-07-11 22:01] LABS: Absolute Lymphocyte Count 1.86 X10^3/uL (0.83-4.51)
[2023-07-11 22:05] LABS: ALB/GLOB Ratio 0.5 RATIO (0.9-2.4); AST(SGOT) 298 U/L (15-37); Alanine Aminotransfer ALT/SGPT 48 U/L (13-56); Albumin, Serum 1.5 g/dL (3.2-5.0); Alkaline Phosphatase 817 U/L (45-117); Anion Gap 6 (5-15); BUN 7 mg/dL (7-18); BUN/Creat Ratio 25.2 RATIO (10-20); Calcium,Total 7.4 mg/dL (8.5-10.1); Chloride 92 mmol/L (98-107); Creatinine, Serum 0.28 mg/dL (0.55-1.02); EST Glomerular Filtration Rate 279 mL/min (>60); Est Glom Filt Rate - Afr Amer 337 mL/min (>60); Estimated Creatinine Clearance 228.31 ml/min; Globulin 3.3 g/dL (2.2-4.2); Glucose 94 mg/dL (74-106); Potassium 2.7 mmol/L (3.5-5.1); Protein, Total 4.8 g/dL (6.4-8.2); Sodium Level 134 mmol/L (136-145); Troponin-I HS 3 pg/mL (3.0-54.0)
[2023-07-11] MEDS: Piperacil/Tazobactam 3.375 GM in 0.9% Normal Saline (50mL MB+) 50 ML IV (22:10)
[2023-07-11 22:20] LABS: Lactic Acid 1.7 mmol/L (0.4-1.9)
[2023-07-11 22:28] LABS: Magnesium 2.3 mg/dL (1.6-2.6)
[2023-07-11] MEDS: Vancomycin IV 1,000 MG/200 ML BAG 200 MG IV (22:51)
[2023-07-11] MEDS: Potassium Chloride 10mEq/100mL 10 MEQ/100 ML IV.SOLN. 100 MEQ IV BOLUS (23:05)
[2023-07-11 23:06] VITALS: BP 106/70; PULSE 95; RESP 16; O2SAT 100
--- NOTE | 2023-07-11 23:12 | EDS_ITS ---
HPI History of Present Illness Chief Complaint: Abn Labs Narrative Narrative: Patient presenting today to [facility] emergency room have concern for having positive blood cultures and wound cultures from her back wound. Patient was seen yesterday and had images and blood work yesterday and was supposed to be transferred to [facility] where she had previously had surgery on her spine. She had dehiscence and clear infection of the spine and there is also drainage from the wounds. The patient's family has put some believes over this after they state nothing else was working and they packed the leaves in the wound and dressed it. The patient has not had a fever since she is left. states that she vomited once this morning after gagging on some food but had 2 meals after this. No fevers. No loss of bladder or bowel control. No saddle anesthesia. [facility] Medical History (Updated 07/10/23 @ 20:[address] Mathew Andrews MD) Colon cancer Home Medications sertraline 50 mg tablet 50 mg PO Q24H 05/27/23 [History Last Taken 07/09/23] cephalexin 500 mg capsule 500 mg PO Q6 #40 CAPSULES 07/10/23 [Rx Last Taken Unknown] hydromorphone 4 mg tablet (Dilaudid) 4 mg PO Q4H PRN pain 07/10/23 [History Last Taken 07/10/23] methocarbamol 500 mg tablet 500 mg PO TID 07/10/23 [History Last Taken 07/09/23] morphine 15 mg tablet,extended release (MS Contin) 15 mg PO .COMPLEX PAIN 07/10/23 [History Last Taken 07/10/23] sennosides 8.6 mg tablet (Natural Senna Laxative) 8.6 mg PO DAILY PRN constipation 07/10/23 [History Last Taken 07/09/23] Allergy/AdvReac Type Severity Reaction Status Date / Time No Known Allergies Allergy Verified 07/11/23 20:08 Surgical History (Updated 07/10/23 @ 15:[address] Mathew Andrews MD) History of back surgery History of cholecystectomy History of colon surgery Social History household members: spouse Smoking Status: Never smoker substance use type: does not use EXAM Physical Exam Const Vital Signs: 07/11/23 20:03 07/11/23 20:06 07/11/23 20:29 Temperature 97.7 F L 97.7 F L Temperature Source Oral Oral Pulse Rate 106 H 106 H Respiratory Rate 18 18 Blood Pressure 113/73 113/73 Blood Pressure Mean 86 86 Pulse Ox 92 92 92 Oxygen Delivery Method Room Air Room Air Room Air Oxygen Flow Rate (L/min) 07/11/23 23:06 Temperature Temperature Source Pulse Rate 95 Respiratory Rate 16 Blood Pressure 106/70 Blood Pressure Mean 82 Pulse Ox 100 Oxygen Delivery Method Nasal Cannula Oxygen Flow Rate (L/min) 2 MDM MDM MDM Narrative Medical decision making narrative: Patient with positive blood cultures and wound cultures from yesterday. She has colon cancer which is metastatic to the spine and previous had surgical repair of her spine at [facility] because of this problem. She was seen yesterday and had lab work done and was supposed to be transferred to [facility] however after this the patient and her decided to go home and signed out AGAINST MEDICAL ADVICE. They were called today and it sounds like multiple times they were told that they will need to go to [facility] and the tells me that he spoke with somebody from [facility] and they thought that he could be sent here and she could have medical management here at the hospital. It does not look like they understood that she had a postop spine infection. This was explained to the patient at length as to why he needed to go to [facility] yesterday. The leads were removed from the patient's wound and the wound was cleaned and dressed. Repeat lab work was obtained. I did speak with the transfer line for [facility] and she is excepted to [facility]. Patient was given vancomycin and Zosyn. Leukocytosis today is lower at 20.7. Hemoglobin slightly lower at 7.6. Platelets are 224. Potassium is low at 2.7 and magnesium was normal so I did give her 40 mEq of potassium IV. She was kept NPO. Urinalysis is negative. I explained to the who wanted to try to go home that she would not do well with this. She has postoperative infection and likely terminal cancer. We did discuss hospice however the patient and her now wish to go to [facility]. Patient was given IV fluids. Transfer paperwork was filled out. It is reported that she will be leaving at about 2 AM this morning. Impression: 1. postoperative infection 2. Leukocytosis 3. Bacteremia Lab Data Attestation: I reviewed the patient's lab results. Labs: Laboratory Results - last 24 hr 07/11/23 07/11/23 21:04 21:30 WBC 20.7 H RBC 2.81 L Hgb 7.6 L Hct 25.0 L MCV 89.0 MCH 27.0 MCHC 30.4 L RDW Std Deviation 55.9 H RDW Coeff of Patience 17.2 H Plt Count 224 MPV 9.1 Neut % (Auto) Not Reportable Absolute Neuts (auto) 16.1 H Absolute Lymphs (auto) 1.86 Total Counted 100 Neutrophils % (Manual) 61 Band Neutrophils % 17 H Lymphocytes % (Manual) 9 L Monocytes % (Manual) 5 Eosinophils % (Manual) 2 Metamyelocytes % 3 H Myelocytes % 2 H Promyelocytes % 1 H Diff Path Review January foll PT 15.6 H INR 1.2 APTT 37.0 H Sodium 134 L Potassium 2.7 L* Chloride 92 L Carbon Dioxide 36.0 H Anion Gap 6 BUN 7 Creatinine 0.28 L Estim Creat Clear Calc 228.31 Est GFR (MDRD) Af Amer 337 Est GFR (MDRD) Non-Af 279 BUN/Creatinine Ratio 25.2 H Glucose 94 Lactic Acid 1.7 Calcium 7.4 L Magnesium 2.3 Total Bilirubin 0.90 AST 298 H ALT 48 Alkaline Phosphatase 817 H Troponin I High Sens 3 Total Protein 4.8 L Albumin 1.5 L Globulin 3.3 Albumin/Globulin Ratio 0.5 L Urine Color Yellow Urine Clarity Clear Urine pH 7.0 Ur Specific [place] 1.005 Urine Protein Negative Urine Glucose (UA) Normal Urine Ketones Negative Urine Occult Blood Negative Urine Nitrite Negative Urine Bilirubin Negative Urine Urobilinogen Normal Ur Leukocyte Esterase Negative Urine RBC 0 SEEN Urine WBC 0 SEEN Ur Squamous Epith Cells 0 SEEN Urine Bacteria 0 SEEN Urine Mucus 0 SEEN Discharge Plan Triage Chief Complaint: Abn Labs ED Provider: Fred Dahl Dx/Rx/DC Orders Prescriptions: No Action sertraline 50 mg tablet 50 mg PO Q24H Patient Comments: TAKE ONE TABLET BY MOUTH DAILY morphine [MS Contin] 15 mg tablet extended release 15 mg PO .COMPLEX Rx Instructions: 15 mg orally 2AM, 1AFTERNOON, 2PM; hydromorphone [Dilaudid] 4 mg tablet 4 mg PO Q4H PRN (Reason: pain) methocarbamol 500 mg tablet 500 mg PO TID sennosides [Natural Senna Laxative] 8.6 mg tablet 8.6 mg PO DAILY PRN (Reason: constipation) cephalexin [cephalexin] 500 mg capsule 500 mg PO Q6 Qty: 40 0RF Primary Care Provider: Ayush Nunez Referrals: Ayush Nunez DO [Primary Care Provider] -
[2023-07-12 00:10] VITALS: BP 106/70; PULSE 94; RESP 18; O2SAT 100
[2023-07-12] MEDS: Potassium Chloride 10mEq/100mL 10 MEQ/100 ML IV.SOLN. 100 MEQ IV BOLUS (00:22)
--- NOTE | 2023-07-12 00:40 | ED.RN ---
pt's spouse gave 4mg dilaudid po. pt and spouse then requested iv pain medication. dr ryan aware. continue current plan of care and observe effectiveness of oral med prior to administering more.
[2023-07-12 13:40] LABS: Pathologist Review Reviewed
--- NOTE | 2023-07-13 00:08 | ED.RN ---
positive blood cultures called to [facility] ED, spoke with Marielle. Results faxed to [facility] ED.
== END 2023-07-12 00:57 | disposition short-term general hospital (02) ==
LOC: ED 21:52
PROVIDERS: Emergency Provider Student in an Organized Health Care Education/Training Program; PCP Family Medicine; Visit Provider Student in an Organized Health Care Education/Training Program
DX: T81.49XA Infection following a procedure, other surgical site, initial encounter (principal); C79.51 Secondary malignant neoplasm of bone; C18.9 Malignant neoplasm of colon, unspecified; X58.XXXA Exposure to other specified factors, initial encounter; R78.81 Bacteremia
CPT/HCPCS: 80053; 81001; 83605; 83735; 84484; 85025; 85610; 85730; 87040; 87077; 87086; 93005; 96361; 96365; 96366; 96367; 96368; 99285; J7030; J7050; A4216